=== PATIENT | female | born 1980 | race African-American/Black ===

== ENCOUNTER 2025-03-14 19:50 | Emergency (ER) | payer OTHER, MEDICAID ==
[~2025-03-14] VITALS: Ht 165.1 cm; Wt 79.0 kg
[~2025-03-14 19:50] MED LIST: SIMVASTATIN; lisinopril; metformin; motrin; omeprazole
[2025-03-14 20:04] VITALS: TEMP 36.6; O2SAT 95
[2025-03-14 21:21] LABS: BASOPHILS % 0.6 % (0.0-2.0); EOSINOPHILS % 2.9 % (0.0-5.0); HEMATOCRIT. 30.2 % (36.0-48.0); HEMOGLOBIN. 10.0 g/dL (12.0-16.0); LYMPHOCYTES % 44.5 % (20.0-50.0); MEAN PLATELET VOLUME 6.7 fl (7.4-10.4); MONOCYTES % 8.2 % (2.0-8.0); NEUTROPHILS % 43.8 % (40.0-76.0); PLATELET 407 x1000/uL (130-400); RED BLOOD CELL COUNT 3.75 mill/uL (4.2-5.4); RED CELL DISTRIBUTION WIDTH 17.7 % (11.6-14.6)
[2025-03-14 21:34] LABS: INR 1.0
[2025-03-14 21:35] LABS: CREATININE 0.9 mg/dL (0.6-1.0)
[2025-03-14 21:36] LABS: TROPONIN I HIGH SENSITIVITY < 4 ng/L (3.0-34); UREA NITROGEN BLOOD 11 mg/dL (9-23)
[2025-03-14 21:37] LABS: ASPARTATE AMINOTRANSFERASE 27 IU/L (<34)
[2025-03-14 21:38] LABS: BILIRUBIN DIRECT < 0.1 mg/dL (<=3.0); BILIRUBIN TOTAL 0.2 mg/dL (0.1-1.0); PROTEIN TOTAL 6.8 g/dL (6.0-8.3)
[2025-03-14 21:42] LABS: HCG SCREEN NEGATIVE
[2025-03-14] MEDS: METOCLOPRAMIDE HCL 10MG/2ML VIAL IV STA (21:58)
[2025-03-14] MEDS: SODIUM CHLORIDE 0.9% 1,000 ML IV ONE (21:59)
[2025-03-14] MEDS: FAMOTIDINE 20MG/2ML VIAL IV STA (21:59)
[2025-03-14] MEDS: KETOROLAC 30MG/ML VIAL IV SCH (22:30)
[2025-03-14 23:29] LABS: CLARITY URINE CLEAR (CLEAR); COLOR URINE YELLOW (YELLOW); GLUCOSE URINE NEGATIVE (NEGATIVE); KETONES URINE TRACE (NEGATIVE); LEUKOCYTE ESTERASE URINE NEGATIVE (NEGATIVE); NITRITE URINE NEGATIVE (NEGATIVE); OCCULT BLOOD URINE NEGATIVE (NEGATIVE); PH URINE 5.5 (4.5-8.0); PROTEIN URINE NEGATIVE (NEGATIVE); SPECIFIC GRAVITY URINE 1.032 (1.005-1.030); UROBILINOGEN URINE 1.0 E.U./dL (0.2-1.0)
[2025-03-14 23:41] LABS: TROPONIN I HIGH SENSITIVITY < 4 ng/L (3.0-34)
[2025-03-15 00:35] VITALS: BP 132/90; PULSE 72; RESP 14; O2SAT 99
== END 2025-03-15 00:53 | disposition home or self-care (01) ==
LOC: ER 19:50
DX: K29.70 Gastritis, unspecified, without bleeding (principal); E11.43 Type 2 diabetes mellitus with diabetic autonomic (poly)neuropathy; I10 Essential (primary) hypertension; Z90.49 Acquired absence of other specified parts of digestive tract; Z79.899 Other long term (current) drug therapy; Z88.5 Allergy status to narcotic agent
CPT/HCPCS: 80076; 80048; 81003; 84703; 83690; 85025; 85610; 84484; 36415; 74177; 96361; 96374; 96375; 99285; 93005; Q9967; J1308; J1885; J2765; J7030; Z7610 ×4; A4606